=== PATIENT | male | born 1945 | race Caucasian/White ===

== ENCOUNTER → 2018-02-03 | Day surgery (SDC) | payer OTHER ==
[~2018-02-03] VITALS: Ht 182.9 cm; Wt 99.8 kg
--- NOTE | 2018-02-03 12:24 | Operative Report ---
Operative/Inv Procedure Report Surgery Date: 02/03/18 Name of Procedure: Right carpal tunnel release Pre-Operative Diagnosis: Right carpal tunnel syndrome Post-Operative Diagnosis: Same Estimated Blood Loss: none Surgeon/Contractor General Engineering: Toñito De Jesus MD Anesthesia: local monitored anesthesi IV Fluids: See anesthesia record Implants: None Specimens: None Tourniquet: 13 minutes Complications: None Condition: Stable Operative Indication: Patient 73-year-old male with documented EMG nerve conduction studies confirming right carpal tunnel syndrome. He wished to proceed with surgical decompression the nerve. The risks and benefits of procedure discussed with the patient detailed the office. Operative/Procedure Note Note: Once informed consent was obtained the correct limb was identified the patient brought to have him placed on table supine position. At the administration of station the tourniquet was placed on the right upper extremity and local anesthesia was infiltrated around the planned incision site with 1% lidocaine without epinephrine and 0.5% Marcaine without epinephrine. Right upper arm was prepped and draped in usual sterile fashion. To begin the procedure incision was made in line with the radial border of the fourth ray and within a skin crease on the palm. Sharp dissection carried onto the skin and subcutis tissue. A wheat Morgan retractor was placed in the deep palmar fascia was incised. A Coldiron elevator was placed deep to the transverse carpal ligament and the transverse carpal ligament was transected with a #15 blade with care to avoid any nervous structures or tendinous structures. The median nerve was immediately identified and protected. The transection was carried out distally and proximally. Complete decompression was achieved. The wound was copiously irrigated with sterile saline. The skin was closed with 3-0 nylon interrupted sutures and a sterile dressing applied. The patient was awakened taken to come in stable condition.
== END ==
LOC: STS 03:45
DX: G56.01 Carpal tunnel syndrome, right upper limb (principal); I10 Essential (primary) hypertension; K21.9 Gastro-esophageal reflux disease without esophagitis
CPT/HCPCS: J0690; J2001; J2250